=== PATIENT | male | born 1965 | race Two or more races ===

== ENCOUNTER 2016-12-20 19:53 | Inpatient (IN) | payer SELFPAY ==
[2016-12-20] MEDS ORDERED: NS 1,000 ML IV ONE (20:27)
[2016-12-20] MEDS ORDERED: PANTOPRAZOLE SODIUM 40 MG in NS 100 ML IV ONE (20:49)
--- NOTE | 2016-12-20 20:49 | EDPHY ---
H & P Stated Complaint: c/o abd pain/bloody stool/bloody vomit since early am, pt febrile - Medical/Surgical History Hx Asthma: No Hx Chronic Respiratory Disease: No Hx Diabetes: No Hx Cardiac Disease: No Hx Renal Disease: No Hx Cirrhosis: No Hx Alcoholism: No Hx HIV/AIDS: No Hx Splenectomy or Spleen Trauma: No Other PMH: unk cardiac surg, gerd - Social History Smoking Status: Light smoker Time Seen by Provider: 12/20/16 20:27 HPI/ROS: Chief complaint: Abdominal pain with bloody vomiting and diarrhea History of present illness: This is a 51-year-old male who presents to the emergency department for evaluation of abdominal pain with bloody vomiting and diarrhea. Patient reports the onset of pain earlier this morning. Pain has been in the epigastric region. He reports after the pain he developed diarrhea , at least 30 episodes, he describes dark blood in it. He further reports he has had some nausea and vomiting, he has seen some blood clots in the vomit. Patient denies precipitating factors. He denies alleviating factors. He denies other associated signs or symptoms. He has never had similar. Review of systems: A 10 point review of systems was obtained and other than described above was negative (Norberto Maddox) - Physical Exam Exam: General Appearance: Alert, no distress. Eyes: Pupils equal and round no pallor or injection. ENT, Mouth: Mucous membranes moist. Respiratory: There are no retractions, lungs are clear to auscultation. Cardiovascular: Regular rate and rhythm. Gastrointestinal: Bowel sounds normal. Abdomen is distended and tender to palpation in the epigastric region. No peritoneal signs. Neurological: Alert and oriented x4. Strength and sensation intact and symmetrical. Skin: Warm and dry, no rashes. Musculoskeletal: Neck is supple nontender. Extremities are symmetrical, full range of motion. Psychiatric: Patient is oriented X 3, there is no agitation. (Norberto Maddox) Constitutional: Initial Vital Signs Temperature (C) 38.2 C 12/20/16 20:08 Heart Rate 128 H 12/20/16 20:08 Respiratory Rate 20 12/20/16 20:08 Blood Pressure 184/121 H 12/20/16 20:08 O2 Sat (%) 98 12/20/16 20:08 O2 Delivery Mode Room Air Allergies/Adverse Reactions: No Known Allergies Allergy (Verified 12/20/16 20:15) Home Medications: Medication Instructions Recorded Pharmacy Completed 11/07/11 11/07/11 [facility] 12/20/16 Medical Decision Making - Diagnostics Imaging: Discussed imaging studies w/ low voltage technician Radiologist, I viewed and interpreted images myself - Diagnostics Imaging Results: Imaging Impressions Chest X-Ray 12/20/16 21:04 Impression: Diskoid atelectasis or scarring left lower lobe. No other findings for acute cardiopulmonary abnormality. Abdomen CT 12/20/16 21:38 Impression: 1. Possible subtle pancreatitis at the head of the pancreas. 2. Diverticulosis without evidence for diverticulitis. No evidence for appendicitis. Probable appendicolith. 3. Cholelithiasis. 4. Nonspecific hypodense lesion left lobe of the liver measuring 14 mm. Recommend multiphase postcontrast evaluation with CT or MRI. Results called and discussed with HOWARD Vargas at 12/20/2016 22:17. Procedures: Digital rectal exam is performed at bedside with jessica melena noted (Norberto Maddox) ED Course/Re-evaluation: Patient seen in conjunction with my secondary supervising physician Dr. Nicolasa Woodard. Patient presents to the emergency department for abdominal pain with bloody vomit and diarrhea. Digital rectal exam is positive for jessica melena. Patient does appear to have a GI bleed. He is started on Protonix. However patient was mildly febrile on presentation with a significant white count and tachycardic, he did trigger sepsis criteria, he had an elevated lactate, patient was given fluid bolus, CT scan was pursued to look for intra-abdominal infection as well as chest x-ray and urinalysis, no obvious site of infection is noted at this time, repeat lactate mildly improved but still elevated, blood cultures are pending, antibiotics will be started at the discretion of the admitting physician. Patient is admitted to Dr. Farideh Dobbins. On-call gastroenterology doctor Adriane will consult on this patient. The plan has been discussed with the patient who voiced understanding and agreement with it. The bilingual interpreter has been used to facilitate communication with patient. ( Norberto Maddox) Differential Diagnosis: Included but not limited to upper gastrointestinal bleed, lower gastrointestinal bleed, biliary tract disease, pancreatitis, colitis, appendicitis, urinary tract disease, sepsis secondary to multiple etiologies ( Norberto Maddox) Other Provider: I evaluated and participated in the management of the patient. I also evaluated the patient independently. My co-signature indicates that I have reviewed this chart and I agree with the findings and plan of care as documented. My personal H&P findings include: 51-year-old male presenting to the emergency department reporting that at 3 o'clock in the morning yesterday he developed significant epigastric discomfort followed by multiple bouts of bloody and black , tarry, melanotic stool. Patient had 2 bouts of vomiting which were bloody. He presents tachycardic with significant abdominal discomfort. Of note, the patient also has a fever on presentation at 38.2. He denies any chest pain or shortness of breath. He did feel near syncopal and lightheaded. He denies any urinary complaints. He denies a rash. Denies any recent travel outside the [place]. He reports nobody else is ill with vomiting or diarrhea. On examination the patient was tachycardic on initial presentation at 128. On my examination is heart rate is 117. He is hypertensive. Slightly diaphoretic. Tachycardic rhythm on the heart. Lungs are clear. Abdomen is soft, epigastric tenderness, no guarding or rebound. Slightly distended. Tympanitic. No rash or peripheral edema. On rectal examination per HOWARD Vargas, stool was grossly melanotic. Patient IV established. Given his fever, and tachycardia sepsis evaluation was also undertaken. The patient presents to the ED with vomiting, diarrhea, and GI hemorrhage, and fever identified as an potential acute infection. The patient did have evidence of end-organ dysfunction and met criteria for severe sepsis. This condition was identified by myself at 2115. The patients vital signs are 181/ 112, 128, 20, 98, 38.2. The patient has a venous lactic acid performed within 3 hours of the identification of severe sepsis which was found to be 2.4. The patient has blood cultures drawn. After discussions with the hospitalist service, antibiotics were not administered at this time. Patient's elevated lactic acid elevated white blood cell count may be a result of hypovolemia, inflammatory reaction. Exact source of the patient's fever is not well identified at this time. Blood cultures and urine culture pending. Chest x- ray demonstrates no acute pneumonia. Hospitalist Dr. Dobbins is aware of the patient's labs as well as the patient's clinical course, fever, elevated lactic acid, and leukocytosis. Dr. Paul Forrest from Gastroenterology is also aware of the patient's admission. After fluid resuscitation in the emergency department patient's H&H has diminished with a hematocrit drop from 37-32. (Nicolasa Woodard) - Data Points Laboratory Results: Laboratory Results 12/20/16 20:40 12/20/16 20:40 12/20/16 12/20/16 12/20/16 21:00 20:40 20:40 WBC RBC Hgb Hct MCV MCH MCHC RDW Plt Count MPV Neut % (Auto) Lymph % (Auto) [place] % (Auto) Eos % (Auto) Baso % (Auto) Nucleat RBC Rel Count Absolute Neuts (auto) Absolute Lymphs (auto) Absolute Monos (auto) Absolute Eos (auto) Absolute Basos (auto) Absolute Nucleated RBC Immature Gran % Immature Gran # PT INR APTT VBG Lactic Acid 2.4 mmol/L H mmol/L (0.7-2.1) Sodium Potassium Chloride Carbon Dioxide Anion Gap BUN Creatinine Estimated GFR Glucose Calcium Total Bilirubin Conjugated Bilirubin Unconjugated Bilirubin AST ALT Alkaline Phosphatase Troponin I < 0.012 ng/mL ng/mL (0-0.034) Total Protein Albumin Lipase Patient ABO/Rh O NEGATIVE Antibody Screen NEGATIVE 12/20/16 12/20/16 12/20/16 20:40 20:40 20:40 WBC 15.23 10^3/uL H 10^3/uL (3.80-9.50) RBC 3.86 10^6/uL L 10^6/uL (4.40-6.38) Hgb 12.5 g/dL L g/dL (13.7-17.5) Hct 37.3 % L % (40.0-51.0) MCV 96.6 fL fL (81.5-99.8) MCH 32.4 pg pg (27.9-34.1) MCHC 33.5 g/dL g/dL (32.4-36.7) RDW 12.9 % % (11.5-15.2) Plt Count 257 10^3/uL 10^3/uL (150-400) MPV 10.7 fL fL (8.7-11.7) Neut % (Auto) 65.4 % % (39.3-74.2) Lymph % (Auto) 20.6 % % (15.0-45.0) [place] % (Auto) 12.9 % % (4.5-13.0) Eos % (Auto) 0.1 % L % (0.6-7.6) Baso % (Auto) 0.5 % % (0.3-1.7) Nucleat RBC Rel Count 0.0 % % (0.0-0.2) Absolute Neuts (auto) 9.95 10^3/uL H 10^3/uL (1.70-6.50) Absolute Lymphs (auto) 3.14 10^3/uL H 10^3/uL (1.00-3.00) Absolute Monos (auto) 1.96 10^3/uL H 10^3/uL (0.30-0.80) Absolute Eos (auto) 0.02 10^3/uL L 10^3/uL (0.03-0.40) Absolute Basos (auto) 0.08 10^3/uL 10^3/uL (0.02-0.10) Absolute Nucleated RBC 0.00 10^3/uL 10^3/uL (0-0.01) Immature Gran % 0.5 % % (0.0-1.1) Immature Gran # 0.08 10^3/uL 10^3/uL (0.00-0.10) PT 14.3 SEC SEC (12.0-15.0) INR 1.12 (0.83-1.16) APTT 30.5 SEC SEC (23.0-38.0) VBG Lactic Acid Sodium 139 mEq/L mEq/L (134-144) Potassium 4.2 mEq/L mEq/L (3.5-5.2) Chloride 103 mEq/L mEq/L (97-110) Carbon Dioxide 21 mEq/l L mEq/l (22-31) Anion Gap 15 mEq/L mEq/L (8-16) BUN 32 mg/dL H mg/dL (7-23) Creatinine 0.6 mg/dL L mg/dL (0.7-1.3) Estimated GFR > 60 Glucose 201 mg/dL H mg/dL (70-100) Calcium 9.8 mg/dL mg/dL (8.5-10.4) Total Bilirubin 1.5 mg/dL H mg/dL (0.1-1.4) Conjugated Bilirubin 0.4 mg/dL mg/dL (0.0-0.5) Unconjugated Bilirubin 1.1 mg/dL mg/dL (0.0-1.1) AST 69 IU/L H IU/L (17-59) ALT 104 IU/L H IU/L (21-72) Alkaline Phosphatase 102 IU/L IU/L (38-126) Troponin I Total Protein 8.0 g/dL g/dL (6.3-8.2) Albumin 4.2 g/dL g/dL (3.5-5.0) Lipase 49.0 IU/L IU/L (23-300) Patient ABO/Rh Antibody Screen Medications Given: Discontinued Medications Acetaminophen (Tylenol) 1,000 mg PO EDNOW ONE Stop: 12/20/16 22:31 Last Admin: 12/20/16 22:30 Dose: 1,000 mg Sodium Chloride (Ns) 1,000 mls @ 0 mls/hr IV ONCE ONE; Wide Open PRN Reason: Protocol Stop: 12/20/16 20:28 Last Admin: 12/20/16 20:50 Dose: 1,000 mls Pantoprazole Sodium 40 mg/ (Sodium Chloride) 100 mls @ 200 mls/hr IV EDNOW ONE Stop: 12/20/16 21:18 Last Admin: 12/20/16 20:58 Dose: 100 mls Sodium Chloride (Ns) 2,700 mls @ 5,400 mls/hr 30 ml/kg infuse over 30 min ( 2700 ml) IV EDNOW ONE PRN Reason: Protocol Stop: 12/20/16 21:44 Last Admin: 12/20/16 21:18 Dose: 2,700 mls Departure - Departure Disposition: [facility] Acute Clinical Impression: Tachycardia GI bleed Qualifiers: GI bleed type/associated pathology: unspecified gastrointestinal hemorrhage type Qualified Code(s): K92.2 - Gastrointestinal hemorrhage, unspecified Fever Qualifiers: Fever type: unspecified Qualified Code(s): R50.9 - Fever, unspecified Condition: Serious
[2016-12-20 20:57] LABS: % IMMATURE GRANULYOCYTES 0.5 % (0.0-1.1); ABSOLUTE IMMATURE GRANULOCYTES 0.08 10^3/uL (0.00-0.10); ADD DIFF? NO; ADD MORPH? NO; ADD SCAN? NO; ATYPICAL LYMPHOCYTE FLAG 10 (0-99); FRAGMENT RBC FLAG 0 (0-99); HEMATOCRIT 37.3 % (40.0-51.0); HEMOGLOBIN 12.5 g/dL (13.7-17.5); LEFT SHIFT FLG 0 (0-99); LIPEMIA HEMOLYSIS FLAG 80 (0-99); MEAN CELL HEMOGLOBIN 32.4 pg (27.9-34.1); MEAN CELL HEMOGLOBIN CONCENTR. 33.5 g/dL (32.4-36.7); MEAN CELL VOLUME 96.6 fL (81.5-99.8); MEAN PLATELET VOLUME 10.7 fL (8.7-11.7); PLATELET CLUMPS FLAG 0 (0-99); PLATELET COUNT 257 10^3/uL (150-400); RED BLOOD CELL COUNT 3.86 10^6/uL (4.40-6.38); RED CELL DISTRIBUTION WIDTH 12.9 % (11.5-15.2)
[2016-12-20 21:10] LABS: APTT 30.5 SEC (23.0-38.0); INR 1.12 (0.83-1.16); PROTIME(PATIENT) 14.3 SEC (12.0-15.0)
[2016-12-20] MEDS ORDERED: NS 2,700 ML IV ONE (21:15)
[2016-12-20 21:21] LABS: ALANINE AMINOTRANSFERASE 104 IU/L (21-72); ALBUMIN 4.2 g/dL (3.5-5.0); ALKALINE PHOSPHATASE 102 IU/L (38-126); ANION GAP 15 mEq/L (8-16); ASPARTATE AMINOTRANSFERASE 69 IU/L (17-59); BILIRUBIN,TOTAL 1.5 mg/dL (0.1-1.4); BILIRUBIN-CONJUGATED 0.4 mg/dL (0.0-0.5); BILIRUBIN-UNCONJUGATED 1.1 mg/dL (0.0-1.1); CALCIUM 9.8 mg/dL (8.5-10.4); CARBON DIOXIDE 21 mEq/l (22-31); CHLORIDE 103 mEq/L (97-110); CREATININE 0.6 mg/dL (0.7-1.3); GLOMERULAR FILTRATION RATE > 60; GLUCOSE 201 mg/dL (70-100); POTASSIUM 4.2 mEq/L (3.5-5.2); SODIUM 139 mEq/L (134-144)
[2016-12-20] MEDS ORDERED: IOPAMIDOL (ISOVUE-300) 100 ML BTL ONE (21:47)
[2016-12-20 21:48] LABS: LACGHOST ORDER
[2016-12-20] MEDS ORDERED: ACETAMINOPHEN 500 MG TAB ONE (22:27)
[2016-12-20] MEDS ORDERED: ACETAMINOPHEN 500 MG TAB PO ONE (22:30)
--- NOTE | 2016-12-20 22:42 | CPEKG ---
Heart Rate: 114 RR Interval: 526 P-R Interval: 156 QRSD Interval: 90 QT Interval: 340 QTC Interval: 469 P [place]: 45 QRS [place]: 22 T Wave [place]: 23 EKG Severity - BORDERLINE ECG - EKG Impression: SINUS TACHYCARDIA EKG Impression: PROBABLE LEFT ATRIAL ABNORMALITY Electronically Signed By: Nicolasa Woodard 21-Dec-2016 00:40:52
[2016-12-20 22:47] LABS: HEMATOCRIT 32.6 % (40.0-51.0); HEMOGLOBIN 11.1 g/dL (13.7-17.5)
[2016-12-20 22:52] LABS: COLOR YELLOW; LEUKOCYTE ESTERASE,URINE NEGATIVE (NEGATIVE); NITRITE,URINE NEGATIVE (NEGATIVE)
[2016-12-20 23:00] LABS: BACTERIA TRACE /hpf (NONE SEEN)
[2016-12-20 23:01] LABS: RBC,URINE NONE SEEN /hpf (0-3); WBC,URINE NONE SEEN /hpf (0-3)
[2016-12-20] MEDS ORDERED: ONDANSETRON 4 MG/2 ML VIAL IVP PRN (23:04)
[2016-12-20] MEDS ORDERED: ACETAMINOPHEN 325 MG TAB PO PRN (23:04)
[2016-12-20] MEDS ORDERED: ONDANSETRON DISINTEGRATING 4 MG TAB PO PRN (23:04)
[2016-12-20] MEDS: PANTOPRAZOLE SODIUM 80 MG in NS 100 ML IV SCH (23:10)
[2016-12-20] MEDS ORDERED: HYDROmorphONE/DILAUDID 1 MG/ML SYR IVP PRN (23:11)
[2016-12-20] MEDS ORDERED: NS 1,000 ML IV SCH (23:15)
--- NOTE | 2016-12-20 23:38 | GHP ---
[f rep st] HISTORY AND PHYSICAL DATE OF ADMISSION: 12/20/2016 CHIEF COMPLAINT: Melena, hematemesis. HISTORY OF PRESENT ILLNESS: Patient is a 51-year-old male, with past medical history of WPW, presenting with significant melena and hematemesis. He was in his normal state of health until approximately 3:00 a.m. this morning when he awoke and had a very large, black, watery bowel movement. Subsequent bloody BM at 6:30 a.m and then felt lightheaded and dizzy. No LOC. Since this morning, he has had up to 30 episodes of diarrhea, which were all black with some red stool. He had 2-3 episodes of hematemesis, 1 with dark red clots. Has felt sweaty, but no fevers or chills. He uses ibuprofen 2 tabs every few weeks, the last being last week. Drinks 3 times a week; 2-3 shooters along with a couple of beers. Has intermittent heartburn and takes OTC antacid. 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 REVIEW OF SYSTEMS: I completed a 10-point review of systems, negative except as noted in HPI. PAST MEDICAL HISTORY: WPW status post ablation. PAST SURGICAL HISTORY: WPW ablation in October 2011. ALLERGIES: No known drug allergies. FAMILY HISTORY: None. MEDICATIONS: [id number] antacid. SOCIAL HISTORY: Lives in [place], works at [employer] in the kitchen. No tobacco. Drinks 2-3 shooters 3 times a week plus a couple of beers. PHYSICAL EXAMINATION: VITAL SIGNS: Temperature 32, blood pressure 184/121, now 153/73, heart rate is in the one-teens, respiration 20, 95% on room air. GENERAL: Patient is sitting up in bed, mildly diaphoretic, obese, no acute distress. HEENT: PERRLA. EOMI. Oropharynx clear. CV: Regular, but tachycardic. No murmurs, gallops, or rubs. LUNGS: Clear to auscultation bilaterally. ABDOMEN: Significantly distended. No overt tenderness. Positive bowel sounds throughout. Hyperactive. : No suprapubic tenderness. MUSCULOSKELETAL: 5/5 upper and lower extremity strength. NEURO: 2 through 12 intact. PSYCH: Alert and oriented x3. LABORATORY DATA: WBC is 15, hemoglobin is 12, hematocrit is 37, repeat is 11 and 32, platelets 257. Coag's: INR is 1.1, PT is 14, lactate is 2.2 down from 2.4. Sodium is 139, potassium 4.2, chloride 103, carbon dioxide 21, BUN 32, creatinine 0.6, glucose 201. Total bilirubin 1.5, AST is 69, ALT is 104, lipase is 49. Troponin was less than 0.012. Chest x-ray is personally reviewed by me. Chest x-ray scarring left lower lobe , hypo expanded lung garcia. Abdominal CT possible subtle pancreatitis at the head of the pancreas. Diverticulosis without evidence of diverticulitis. Nonspecific hypodense lesion in the left lobe of liver measuring 4 mm. ASSESSMENT/PLAN: 1. Hematemesis/melena: Differential includes diverticulosis as noted on CT, bacterial infection, ulcer, or variceal bleed. Has had a drop in H/H, but hemodynamically stable. Aggressively resuscitate with IV fluids, 2 large-bore PIVs, Protonix drip. Dr. Forrest with GI has been consulted, and will evaluate patient in the morning. Check q4hr H/H 2. Leukocytosis: Differential includes stress inflammation with GI bleed versus an infection. Awaiting GI PCR, as well as a UA. No evidence of pneumonia and denies other infectious symptoms. Blood cultures pending. No evidence of abscess on CT. 3. Transaminitis: Suspect secondary to alcohol. Will repeat these in the morning. Check an abdominal ultrasound. 4. Acute blood loss anemia: due to #1. Plan as stated above. Patient has two 18-gauge IV's. Will monitor in the step-down unit. Transfuse as needed. 5. History of Cierra Parkinson White: Status post ablation. 6. Alcohol use: counseled on cessation 7. Tachycardia: due to blood loss. Aggressive IVFs 8. Lactic acidosis: suspect due to blood loss, dehydration. Fevered, but no infectious source. IVFs, repeat 9. Fever: unclear source. No abscess on CT, UA and CXR negative. Blood cultures and GI PCR pending. 10. Hypodense liver lesion: repeat imaging outpatient 11. Diet: N.p.o. 12. Deep venous thrombosis prophylaxis: Sequential compression devices. Disposition: Patient warrants inpatient admission given acute gastrointestinal bleed warranting further evaluation probable scope in the morning. Critical care time spent: 60 min evaluating patient, reviewing labs and discussing case with Dr. Woodard. /[id number]/MODL MTDD
[2016-12-21 02:03] LABS: HEMATOCRIT 29.6 % (40.0-51.0)
[2016-12-21] MEDS ORDERED: ERTAPENEM 1 GM in NS 100 ML IV ONE (02:53)
[2016-12-21 05:43] LABS: HEMATOCRIT 30.8 % (40.0-51.0); HEMOGLOBIN 10.4 g/dL (13.7-17.5); MEAN CELL HEMOGLOBIN 33.1 pg (27.9-34.1); MEAN CELL HEMOGLOBIN CONCENTR. 33.8 g/dL (32.4-36.7); MEAN CELL VOLUME 98.1 fL (81.5-99.8); RED BLOOD CELL COUNT 3.14 10^6/uL (4.40-6.38); RED CELL DISTRIBUTION WIDTH 13.2 % (11.5-15.2)
[2016-12-21 06:10] LABS: ALANINE AMINOTRANSFERASE 78 IU/L (21-72); ALBUMIN 3.1 g/dL (3.5-5.0); ALKALINE PHOSPHATASE 75 IU/L (38-126); ANION GAP 9 mEq/L (8-16); ASPARTATE AMINOTRANSFERASE 48 IU/L (17-59); BILIRUBIN,TOTAL 1.7 mg/dL (0.1-1.4); CALCIUM 8.6 mg/dL (8.5-10.4); CARBON DIOXIDE 23 mEq/l (22-31); CHLORIDE 110 mEq/L (97-110); CREATININE 0.6 mg/dL (0.7-1.3); GLOMERULAR FILTRATION RATE > 60; GLUCOSE 111 mg/dL (70-100); SODIUM 142 mEq/L (134-144); TOTAL PROTEIN 6.2 g/dL (6.3-8.2)
[2016-12-21] MEDS: PANTOPRAZOLE SODIUM 80 MG in NS 100 ML IV SCH (08:13)
[2016-12-21] MEDS ORDERED: MIDAZOLAM 2 MG/2 ML VIAL ONE ×2 (09:02→09:42)
[2016-12-21] MEDS ORDERED: fentaNYL 100 MCG/2 ML INJ ONE ×2 (09:03→09:42)
[2016-12-21] MEDS ORDERED: NALOXONE HCL 0.4 MG/ML INJ ONE (09:41)
[2016-12-21] MEDS ORDERED: PANTOPRAZOLE SODIUM 40 MG TAB PO SCH (10:00)
[2016-12-21 10:01] VITALS: RESP 14
--- NOTE | 2016-12-21 10:03 | POSTOPPROG ---
Post Op Note Date of Operation: 12/21/16 Surgeon: Paul Forrest Pre-op Diagnosis: hematemesis Post-op Diagnosis: Probable M-W tear, bland, nonbleeding, low risk of rebleed. See report. Indication: as above Procedure: EGD Inf/Abcess present in the surg proc area at time of surgery?: No Specimen(s): See procedure note.
--- NOTE | 2016-12-21 10:24 | GCON ---
[f rep st] CONSULTATION GI INPATIENT. DATE OF CONSULTATION: 12/21/2016 I was kindly requested to see the patient by Dr. Farideh Dobbins in consultation for a chief complaint of hematemesis. HISTORY OF PRESENT ILLNESS: The patient is a 51-year-old male who had this yesterday. With this, he had passage of some black stool. He felt sweaty with the above, as well as lightheaded and dizzy. He uses ibuprofen several tablets every few weeks only. He does drink approximately 3 times a week, 2-3 "shooters " along with a couple of beers. He does have intermittent heartburn and takes [id number] antacid. PAST MEDICAL HISTORY: 1. As above. 2. WPW status post ablation. 3. Otherwise, noncontributory. ALLERGIES: No known drug allergies. INPATIENT MEDICATIONS: Protonix drip and IV fluids. OUTPATIENT MEDICATIONS: Include the above. SOCIAL HISTORY: As above. FAMILY HISTORY: Negative for similar bleeding. REVIEW OF SYSTEMS: Positive pertinent review of systems as per my HPI. Otherwise, a complete review of systems is negative. PHYSICAL EXAM: CONSTITUTIONAL: Nontoxic, pleasant gentleman. SKIN: Warm, dry. EYES: Pupils equal, round, reactive to light and accommodation. EAR, NOSE, MOUTH AND THROAT: Oropharynx without masses, moist mucosa. CARDIOVASCULAR: Normal S2, normal PMI. RESPIRATORY: Lungs clear to auscultation and percussion anteriorly. GASTROINTESTINAL: Abdomen is profuse, nontender. NEUROLOGIC: Grossly nonfocal, cranial nerves grossly intact. PSYCHIATRIC: Orientation, insight appropriate. MUSCULOSKELETAL: Strength grossly normal throughout, normal station. LABORATORIES: Initial hematocrit of 37.3%, now stable at 30% x3. Normal coags. Urinalysis negative. ASSESSMENT: Hematemesis. Possibilities include a peptic ulcer, esophagitis, Kirstin-Singh tear, varices, or gastric cancer. PLAN: Upper endoscopy. Further management pending on this result. Thank you for allowing me to help in the care of this patient. /[id number]/MODL MTDD
[2016-12-21 10:35] VITALS: BP 120/89; PULSE 85; TEMP 98.4; O2SAT 95
--- NOTE | 2016-12-21 10:39 | GPN ---
[f rep st] PROCEDURE NOTE PROCEDURE: Upper endoscopy with biopsy. INDICATION AND PREPROCEDURE DIAGNOSIS: Hematemesis. POSTPROCEDURE DIAGNOSIS: Moderate erosion found just on the cardia side of the gastroesophageal junction. No further bleeding. PREMEDICATION: Fentanyl 200 mcg IV, Versed 8 mg IV. COMPLICATIONS: None. TOTAL TIME OF PROCEDURE: From start of sedation to procedure's end was 24 minutes. FINDINGS: After informed consent was obtained via a hose operator, the patient was placed in the left lateral decubitus position. Video upper endoscope was placed under direct visualization and advanced. The esophagus was normal, without varices. Just on the cardia side of the GE junction, there was an approximately 0.5 cm superficial erosion, bland. No further active bleeding. Biopsies were done of the edges. The stomach was otherwise normal. Biopsy was done of the antrum and cardia for H pylori. Duodenum normal. Again , no active bleeding. IMPRESSION: Superficial cardia erosion as above, almost certainly the cause of his bleeding. In turn, suspect a Kirstin-Singh tear. A cardia superficial ulcer, due to either heartburn or possibly Helicobacter pylori, is possible, but less likely. Doubt malignant, etc. Now, bland, with very little risk of rebleeding. PLAN: 1. We will let him eat. 2. Buffcap IV. 3. We will stop his IV Protonix and change to an oral PPI daily. 4. Biopsies of the above erosion, H pylori pending. From a GI standpoint, okay to discharge home, as a very low chance of rebleed. Upon discharge, I would recommend: 1. Omeprazole 40 mg daily for 6 weeks. 2. Iron replacement therapy for 6 weeks. I will sign off. I will follow up on his biopsies. Otherwise, please let me know if we can be of further help in the future. /[id number]/MODL MTDD
--- NOTE | 2016-12-21 11:52 | PDDCSUM ---
Discharge Summary Discharge Summary: Dates of service 12/20-12/21/16 Discharge dx: # hematemesis/melena # acute blood loss anemia # leukocytosis # elevated lfts # h/o WPW # hypodense liver lesion Consultations: gi Procedures performed: EGD Hospital course by problem # hematemesis/melena: with EGD most c/w migdalia chapin tear w/o e/o active bleeding, low risk of rebleed, plan for continued ppi # acute blood loss anemia; iron x 6 weeks, only mild anemia and HD stable # leukocytosis: stress response # elevated lfts: mild, does have concurrent non specific liver mass, both should be followed up as an op # h/o wpw Dc home f/u with PCP and GI Meds: see EHR > 35 min spent in dc more than half in coordination of care
== END 2016-12-21 13:40 | disposition home or self-care (01) | DRG 369 ==
LOC: F2N 23:32
PROVIDERS: ADMIT Internal Medicine; ATTEND Internal Medicine
PROC: 0DB68ZX Excision of Stomach, Via Natural or Artificial Opening Endoscopic, Diagnostic (ICD-10-PCS; principal; 2016-12-21 09:15)
DX: K22.6 Gastro-esophageal laceration-hemorrhage syndrome (principal); D62 Acute posthemorrhagic anemia; R16.0 Hepatomegaly, not elsewhere classified; D72.829 Elevated white blood cell count, unspecified; Z72.89 Other problems related to lifestyle
CPT/HCPCS: 96365; J1335; J2250; J2310; J3010; Q9967